=== PATIENT | female | born 1950 | race Caucasian/White ===

== ENCOUNTER → 2018-01-25 | Outpatient (CLI) | payer MEDICARE, OTHER ==
[~2018-01-25] MED LIST: ASPI-715 PO; LATOD OU; MAXIVISION PO; VENL150C61 PO
--- NOTE | 2018-01-26 10:41 | RADIOLOGY IMAGING REPORT ---
FACILITY: [facility] - [place] PATIENT NAME: LEILANI GOMEZ : [id number] MR: [id number] V: [id number] EXAM DATE: [id number] ORDERING PHYSICIAN: RADHA SOLORIO TECHNOLOGIST: Clarissa Worthington PROCEDURE:BILATERAL DIGITAL SCREENING MAMMOGRAM WITH CAD ASSISTED INTERPRETATION & 3D TOMOSYNTHESIS COMPARISON:Prior mammograms 01/20/17, 01/12/16, 01/08/15, 01/07/14, 01/04/13. INDICATIONS:SCREENING FINDINGS: A moderate amount fibroglandular tissue is seen throughout the breasts. The parenchymal pattern has remained stable allowing for difference in mammographic technique & patient positioning. There is no evidence of malignant appearing mass, malignant appearing calcifications or other secondary sign of malignancy in either breast. DIAGNOSTIC CATEGORY 1--NEGATIVE. RECOMMENDATIONS: ROUTINE MAMMOGRAM AND CLINICAL EVALUATION. IMPRESSION: BIRADS 1: Negative No significant abnormality is seen. Dictated by: Maya Correia M.D. on 01/25/2018 at 11:08 Transcribed by: ANA LAURA on 01/25/2018 at 11:40 Approved by: Maya Correia M.D. on 01/26/2018 at 10:40 [facility]
== END ==
LOC: MAMO 06:52
PROVIDERS: ATTEND Nurse Practitioner Psychiatric/Mental Health
DX: Z12.31 Encounter for screening mammogram for malignant neoplasm of breast (principal)
CPT/HCPCS: 77063; 77067

== ENCOUNTER 2019-01-19 02:04 | Day surgery (SDC) | payer MEDICARE, OTHER ==
[~2019-01-19] VITALS: Ht 162.6 cm; Wt 98.9 kg
[~2019-01-19 02:04] MED LIST changes: +SERT-181 PO; +VENL225T5 PO
[2019-01-19 13:45] VITALS: BP 158/84
[2019-01-19] MEDS ORDERED: PROPOFOL EMUL(*) 10MG/ML 20 ML 20 ML ONE (13:54)
[2019-01-19] MEDS ORDERED: MIDAZOLAM 2 MG/2 ML VIAL ONE (13:54)
[2019-01-19] MEDS ORDERED: LIDOCAINE MPF 1% 5 ML VIAL ONE (13:54)
[2019-01-19] MEDS ORDERED: NORMOSOL R SOLN(*) 1000 ML BAG 1,000 ML IV PRN (14:00)
[2019-01-19] MEDS ORDERED: acetaZOLAMIDE 500 MG CAPCR PO ONE (14:00)
[2019-01-19] MEDS ORDERED: OPHTHALMIC PROCEDURE 1 OS PRN (14:00)
[2019-01-19] MEDS ORDERED: LIDOCAINE/SOD BICARB 8.4% SYR ID ONE (14:00)
[2019-01-19] MEDS ORDERED: OPHTHALMIC PROCEDURE 2 OS PRN ×2 (14:00)
[2019-01-19] MEDS ORDERED: fentaNYL CITR 100 MCG/2 ML AMP ONE (14:47)
[2019-01-19 15:14] VITALS: BP 121/85
--- NOTE | 2019-01-19 19:56 | FOSTER LEFT EYE CATARACT ---
EVENT DATE: January 19, 2019 SURGEON: Zoran Graham MD ANESTHESIOLOGIST: ZACKARY SUAREZ MD ANESTHESIA: MAC PREOPERATIVE DIAGNOSIS Cataract, left eye. POSTOPERATIVE DIAGNOSIS Cataract, left eye. PROCEDURE Phacoemulsification of cataractous lens with implantation of an intraocular lens, left eye. DESCRIPTION OF PROCEDURE The risks, benefits, and alternatives were carefully discussed with the patient, and preoperative consent was obtained. The patient was brought to the operating room after receiving topical anesthetic. The patient was prepped and draped using sterile technique in the usual manner. A stab incision was made, and the chamber was inflated with preservative-free lidocaine. DuoVisc was injected to inflate the chamber. A 2.2 mm blade was used to enter the anterior chamber. Utrata forceps were used to tear a circular capsulorrhexis. BSS was used to hydrodissect the nucleus. Phaco tip was introduced, and the nucleus was chopped into four quadrants. Each quadrant was removed. The I/A tip was used to remove the cortex. The bag was inflated with ProVisc. The intraocular lens was injected into the capsular bag. The I/A tip was used to remove the ProVisc. The wound was found to be watertight. Vigamox, Nevanac, and Maxitrol ointment were placed in the patient's eye. The patient's eye was patched, and the patient was taken to the recovery room in stable condition. The patient was examined in the recovery room and found to be stable prior to release from the hospital. [facility]
== END 2019-01-19 15:32 | disposition home or self-care (01) ==
LOC: OR 02:04
PROVIDERS: ATTEND Ophthalmology
DX: H25.12 Age-related nuclear cataract, left eye (principal); H25.11 Age-related nuclear cataract, right eye
CPT/HCPCS: 66984; A9270; J2001; J2250; J2704; J3010; V2632

== ENCOUNTER → 2019-02-12 | Outpatient (CLI) | payer MEDICARE, OTHER ==
--- NOTE | 2019-02-14 08:20 | RADIOLOGY IMAGING REPORT ---
FACILITY: [facility] PATIENT NAME: LEILANI GOMEZ : [id number] MR: [id number] V: [id number] EXAM DATE: ORDERING PHYSICIAN: RADHA SOLORIO TECHNOLOGIST: Samara Ambriz PROCEDURE: BILATERAL DIGITAL SCREENING MAMMOGRAM WITH CAD ASSISTED INTERPRETATION & 3D TOMOSYNTHESIS REASON FOR STUDY: Screening FAMILY HISTORY OF BREAST CANCER: Mother & Maternal Aunt BREAST PROCEDURES/TREATMENTS: Benign surgical biopsy Left breast COMPARISON: 01/25/18, 01/20/17, 01/12/16, 01/08/15, 01/07/14, 01/04/13 VIEWS OBTAINED: Bilateral 2D & 3D full field CC & MLO projections BREAST DENSITY: There are scattered areas of fibroglandular density throughout the breasts. MAMMOGRAM FINDINGS: The parenchymal pattern has remained stable allowing for difference in mammographic technique & patient positioning. IMPRESSION: BIRADS 1: Negative. DIAGNOSTIC CATEGORY 1--NEGATIVE. RECOMMENDATIONS: ROUTINE MAMMOGRAM AND CLINICAL EVALUATION. Dictated by: Maya Correia M.D. on 02/12/2019 at 17:53 Transcribed by: ROXY on 02/13/2019 at 7:25 Approved by: Maya Correia M.D. on 02/14/2019 at 8:19 [facility]
== END ==
LOC: MAMO 00:10
PROVIDERS: ATTEND Nurse Practitioner Psychiatric/Mental Health
DX: Z12.31 Encounter for screening mammogram for malignant neoplasm of breast (principal); Z80.3 Family history of malignant neoplasm of breast
CPT/HCPCS: 77063; 77067

== ENCOUNTER 2019-03-30 01:04 | Day surgery (SDC) | payer MEDICARE, OTHER ==
[~2019-03-30] VITALS: Ht 162.6 cm; Wt 103.0 kg
[2019-03-30] MEDS ORDERED: OPHTHALMIC PROCEDURE 1 OD PRN (06:00)
[2019-03-30] MEDS ORDERED: acetaZOLAMIDE 500 MG CAPCR PO ONE (06:00)
[2019-03-30] MEDS ORDERED: OPHTHALMIC PROCEDURE 2 OD PRN ×2 (06:00)
[2019-03-30] MEDS ORDERED: LIDOCAINE/SOD BICARB 8.4% SYR ID ONE (14:30)
[2019-03-30] MEDS ORDERED: NORMOSOL R SOLN(*) 1000 ML BAG 1,000 ML IV PRN (14:30)
[2019-03-30 14:35] VITALS: BP 141/86
[2019-03-30 16:32] VITALS: BP 149/89
--- NOTE | 2019-03-31 08:47 | OPERATIVE REPORT 1 ---
EVENT DATE: March 30, 2019 SURGEON: Zoran Graham MD ANESTHESIOLOGIST: Dandy Melendez MD ANESTHESIA: MAC. PREOPERATIVE DIAGNOSIS Cataract, right eye. POSTOPERATIVE DIAGNOSIS Cataract, right eye. PROCEDURE Phacoemulsification of cataractous lens with implantation of an intraocular lens, right eye. DESCRIPTION OF PROCEDURE The risks and benefits and alternatives were carefully discussed with the patient, and preoperative consent was obtained. The patient was brought to the operating room, after receiving topical anesthetic. The patient was prepped and draped using sterile technique in the usual manner. A stab incision was made and the chamber was inflated with preservative-free lidocaine. DuoVisc was injected to inflate the chamber. A 2.2 mm blade was used to enter the anterior chamber. Utrata forceps were used to tear a circular capsulorrhexis. BSS was used to hydrodissect the nucleus. Phaco tip was introduced and the nucleus was chopped into four quadrants. Each quadrant was removed. The I/A tip was used to remove the cortex. The bag was inflated with ProVisc. The intraocular lens was injected into the capsular bag. The I/A tip was used to remove the ProVisc. The wound was found to be watertight. Vigamox, Nevanac and Maxitrol ointment were placed in the patient's eye. The patient's eye was patched and the patient was taken to the recovery room in stable condition. The patient was examined in the recovery room and found to be stable, prior to release from the hospital. [facility]
== END 2019-03-30 16:50 | disposition home or self-care (01) ==
LOC: OR 01:04
PROVIDERS: ATTEND Ophthalmology
DX: H25.11 Age-related nuclear cataract, right eye (principal)
CPT/HCPCS: 66984; A9270; V2632